=== PATIENT | female | born 1995 | race Caucasian/White ===

== ENCOUNTER 2019-01-02 07:31 | Emergency (ER) | payer OTHER ==
[2019-01-02 08:56] LABS: APPEARANCE,URINE SLIGHTLY-CLOUDY; BILIRUBIN,URINE NEGATIVE (NEGATIVE); COLOR,URINE YELLOW; GLUCOSE, URINE NEGATIVE (NEGATIVE); KETONES,URINE NEGATIVE (NEGATIVE); LEUKOCYTE ESTERASE,URINE SMALL (NEGATIVE); NITRITE,URINE NEGATIVE (NEGATIVE); PROTEIN,URINE NEGATIVE (NEGATIVE); URINE SPECIFIC GRAVITY 1.016; UROBILINOGEN,URINE NEGATIVE mg/dL (<2.0)
[2019-01-02 09:16] LABS: ABSOLUTE BASOPHILS # (AUTO) 0.1 10^3/uL (0.0-0.2); ABSOLUTE EOSINOPHILS # (AUTO) 0.1 10^3/uL (0.0-0.6); ABSOLUTE LYMPHOCYTES (AUTO) 1.7 10^3/uL (0.5-4.7); ABSOLUTE MONOCYTES (AUTO) 0.6 10^3/uL (0.1-1.4); ABSOLUTE NEUT (AUTO) 6.2 10^3/uL (1.7-8.2); BASOPHILS % (AUTO) 0.8 % (0-2); EOSINOPHILS % (AUTO) 1.1 % (0-6); HEMATOCRIT 34.6 % (36.0-47.0); HEMOGLOBIN 12.1 g/dL (12.0-15.5); LYMPHOCYTES % (AUTO) 20.2 % (13-45); MEAN CORPUSCULAR HEMOGLOBIN 29.2 pg (27.0-33.4); MEAN CORPUSCULAR HGB CONC 34.9 g/dL (32.0-36.0); MEAN CORPUSCULAR VOLUME 84 fl (80-97); MONOCYTES % (AUTO) 6.4 % (3-13); PLATELET COUNT 327 10^3/uL (150-450); RED BLOOD COUNT 4.13 10^6/uL (3.72-5.28); RED CELL DISTRIBUTION WIDTH 14.3 % (11.5-14.0); SEGMENTED NEUTROPHILS % (AUTO) 71.5 % (42-78); TOTAL CELLS COUNTED % (AUTO) 100 %; WHITE BLOOD COUNT 8.6 10^3/uL (4.0-10.5)
[2019-01-02] MEDS ORDERED: NORMAL SALINE 1000 ML 1,000 ML IV ONE (09:21)
[2019-01-02] MEDS ORDERED: ONDANSETRON HCL INJ/PF 4 MG/2 ML SDV IV ONE (09:22)
[2019-01-02] MEDS ORDERED: ACETAMINOPHEN 325 MG TABLET PO ONE (09:26)
--- NOTE | 2019-01-02 09:32 | ER Document Report ---
ED GI/ - General Chief Complaint: Abdominal Pain Stated Complaint: BACK PAIN Time Seen by Provider: 01/02/19 08:59 Primary Care Provider: [facility] [Provider Group] - Follow up as needed Notes: Patient is a 23-year-old female who presents to the emergency department with multiple complaints. Patient states that she is about 12 weeks and her last menstrual period is September 23, 2018. She reports that she has had no care as she just obtained insurance and is waiting on a re ferral. Patient states that yesterday she developed light pink vaginal spotting and lower abdominal cramping. Patient reports that the spotting and cramping are intermittent in nature. Patient reports yesterday having 9 episodes of diarrhea. Patient reports that the diarrhea is liquid without blood. She reports she also vomited 5 times within the past 24 hours. Patient states that she has had significant nausea throughout her . Patient reports chills. Patient also complaint of lower back pain. Patient states that Monday she was moving boxes when she tripped and fell backwards. Patient states she did hit the back of the right leg on a board. Patient reports bruising to the posterior aspect of the right lower extremity. Patient states initially the back pain was on the right lower side and is now across the whole back. Patient states that she has attempted to use warm compresses and take warm baths which do help when they are being used. Patient denies head injury or neck injury. TRAVEL OUTSIDE OF THE [place] IN LAST 30 DAYS: No - Related Data Allergies/Adverse Reactions: No Known Allergies Allergy (Unverified 01/02/19 07:32) Past Medical History - General Information source: Patient - Social History Smoking Status: Unknown if Ever Smoked Chew tobacco use (# tins/day): No Frequency of alcohol use: None Drug Abuse: None Lives with: Family Family History: None Patient has suicidal ideation: No Patient has homicidal ideation: No - Past Medical History Cardiac Medical History: Reports: None Pulmonary Medical History: Reports: None EENT Medical History: Reports: None Neurological Medical History: Reports: None Endocrine Medical History: Reports: None Renal/ Medical History: Reports: Hx Kidney Stones. Denies: Hx Peritoneal Dialysis Malignancy Medical History: Reports: None GI Medical History: Reports: None Musculoskeletal Medical History: Reports None Skin Medical History: Reports None Psychiatric Medical History: Reports: None Traumatic Medical History: Reports: None Infectious Medical History: Reports: None Past Surgical History: Reports: Hx Kidney (Renal Surgery) - kidney stones, Hx Orthopedic Surgery - left leg Review of Systems - Review of Systems Constitutional: No symptoms reported EENT: No symptoms reported Cardiovascular: No symptoms reported Respiratory: No symptoms reported Gastrointestinal: See HPI Genitourinary: See HPI Female Genitourinary: See HPI Musculoskeletal: See HPI Skin: No symptoms reported Hematologic/Lymphatic: No symptoms reported Neurological/Psychological: No symptoms reported Physical Exam - Vital signs Vitals: Temp Pulse Resp BP Pulse Ox 97.9 F 109 H 14 129/81 H 96 01/02/19 07:37 01/02/19 07:37 01/02/19 07:37 01/02/19 07:37 01/02/19 07:37 Interpretation: Tachycardic - Notes Notes: GENERAL: Well-appearing, well-nourished and in no acute distress. HEAD: Atraumatic, normocephalic. EYES: Pupils equal round and reactive to light, extraocular movements intact, sclera anicteric, conjunctiva are normal. ENT: Nares patent, oropharynx clear without exudates. Moist mucous membranes. NECK: Normal range of motion, supple without lymphadenopathy or JVD. LUNGS: Breath sounds clear to auscultation bilaterally and equal. No wheezes rales or rhonchi. HEART: Regular rate and rhythm without murmurs, rubs or gallops. ABDOMEN: Soft, nontender, normoactive bowel sounds. No guarding, no rebound. No masses appreciated. BACK: No cervical, thoracic, lumbar midline tenderness. No saddle anesthesia, normal distal neurovascular exam. GENITOURINARY: Deferred. EXTREMITIES: Normal range of motion, no pitting or edema. Large area of ecchymosis noted to the posterior aspect of the right upper leg. There is no edema. Patient has been able to ambulate with a steady gait. NEUROLOGICAL: Cranial nerves II through XII grossly intact. Normal speech, normal gait. PSYCH: Normal mood, normal affect. SKIN: Warm, Dry, normal turgor, no rashes or lesions noted. Course - Re-evaluation Re-evalutation: 01/02/19 09:31 Upon initial examination patient sitting upright in stretcher in no acute distress. Patient denies having vaginal bleeding or discharge at this time. Patient states that the vaginal spotting has been intermittent in nature for the past 24 hours. Will obtain a pelvic examination, ultrasound and additional lab testing. Since patient does report having vomiting and diarrhea over the past 24 hours I will hydrate with IV fluids and give a dose of nausea medicine. I will give Tylenol for pain. Patient is in agreement of this plan and denies questions at this time. 01/02/19 12:05 I did consult with Dr. La during the patient's case and treatment for the bacterial vaginosis. She does recommend the MetroGel for the bacterial vaginosis. Patient to withstand from sexual intercourse until she is fully treated and seen by OB as her cervix could be friable and increased risk for miscarriage. She recommends strict [facility] follow-up. I did discuss this with the patient who verbalizes understanding and denies questions at this time. Patient denies vaginal bleeding since being in the emergency department. 01/02/19 12:21 Patient's gonorrhea and Chlamydia cultures came back negative. - Vital Signs Vital signs: Temp Pulse Resp BP Pulse Ox 97.9 F 84 16 109/67 100 01/02/19 07:37 01/02/19 12:30 01/02/19 12:30 01/02/19 12:30 01/02/19 12:30 - Laboratory Result Diagrams: 01/02/19 08:45 01/02/19 08:45 Laboratory results interpreted by me: 01/02/19 01/02/19 01/02/19 08:30 08:45 08:45 Hct 34.6 L RDW 14.3 H Chloride 108 H Beta HCG, Quant 95332.00 H Ur Leukocyte Esterase SMALL H 01/02/19 10:17 Laboratory 01/02/19 01/02/19 01/02/19 08:30 08:45 08:45 WBC 8.6 RBC 4.13 Hgb 12.1 Hct 34.6 L MCV 84 MCH 29.2 MCHC 34.9 RDW 14.3 H Plt Count 327 Seg Neutrophils % 71.5 Lymphocytes % 20.2 Monocytes % 6.4 Eosinophils % 1.1 Basophils % 0.8 Absolute Neutrophils 6.2 Absolute Lymphocytes 1.7 Absolute Monocytes 0.6 Absolute Eosinophils 0.1 Absolute Basophils 0.1 Neonat Total Bilirubin Not Reportable Neonat Direct Bilirubin Not Reportable Neonat Indirect Bili Not Reportable Urine Color YELLOW Urine Appearance SLIGHTLY-CLOUDY Urine pH 6.0 Ur Specific [place] 1.016 Urine Protein NEGATIVE Urine Glucose (UA) NEGATIVE Urine Ketones NEGATIVE Urine Blood NEGATIVE Urine Nitrite NEGATIVE Urine Bilirubin NEGATIVE Urine Urobilinogen NEGATIVE Ur Leukocyte Esterase SMALL H Urine WBC (Auto) 13 Urine RBC (Auto) 2 Squamous Epi Cells Auto 32 Urine Mucus (Auto) RARE Urine Ascorbic Acid NEGATIVE Blood Type Rhogam Indicated 01/02/19 08:45 WBC RBC Hgb Hct MCV MCH MCHC RDW Plt Count Seg Neutrophils % Lymphocytes % Monocytes % Eosinophils % Basophils % Absolute Neutrophils Absolute Lymphocytes Absolute Monocytes Absolute Eosinophils Absolute Basophils Neonat Total Bilirubin Neonat Direct Bilirubin Neonat Indirect Bili Urine Color Urine Appearance Urine pH Ur Specific [place] Urine Protein Urine Glucose (UA) Urine Ketones Urine Blood Urine Nitrite Urine Bilirubin Urine Urobilinogen Ur Leukocyte Esterase Urine WBC (Auto) Urine RBC (Auto) Squamous Epi Cells Auto Urine Mucus (Auto) Urine Ascorbic Acid Blood Type A POSITIVE Rhogam Indicated RHOGAM NOT INDICATED Patient's blood type is a positive. Patient does not need RhoGam. Patient's urinalysis does show a small amount of leukocytes but does have a good amount of squamous epithelial cells. I will send off a urine culture. Patient CBC is unremarkable without notable anemia, leukocytosis or any acute abnormality. Procedures - Pelvic Exam Pelvic exam Time completed: 10:25 Cultures obtained: Yes Wet prep obtained: Yes Herpes culture obtained: No Foreign body removed: No Witnessed by: Nurse Tech Notes: 01/02/19 10:31 External genitalia was unremarkable without lesions, bleeding or discharge. Patient tolerated the insertion of the speculum well without obvious pain or distress. There was a small amount of white discharge within the vaginal vault. I was able to visualize the cervix which was closed. There was a scant amount of light pink discharge noted on the cervix. Discharge - Discharge Clinical Impression: Vaginal spotting, Bacterial vaginosis in Nausea & vomiting Qualifiers: Vomiting type: unspecified Vomiting Intractability: non-intractable Qualified Code(s): R11.2 - Nausea with vomiting, unspecified Diarrhea Qualifiers: Diarrhea type: unspecified type Qualified Code(s): R19.7 - Diarrhea, unspecified Fall Qualifiers: Encounter type: initial encounter Qualified Code(s): W19.XXXA - Unspecified fall, initial encounter Strain of lumbar paraspinal muscle Qualifiers: Encounter type: initial encounter Qualified Code(s): S39.012A - Strain of muscle, fascia and tendon of lower back, initial encounter Leg injury Qualifiers: Encounter type: initial encounter Laterality: right Qualified Code(s): S89.91XA - Unspecified injury of right lower leg, initial encounter Qualifiers: Weeks of gestation: 12 weeks Qualified Code(s): Z3A.12 - 12 weeks gestation of Condition: Stable Disposition: HOME, SELF-CARE Instructions: Abdominal Pain ([facility]), Diarrhea, Nonspecific ([facility]), Intravenous (IV) Fluids ([facility]), Vomiting ([facility]) Additional Instructions: Today your ultrasound showed a living intrauterine measuring 12 weeks and 3 days with an estimated due date of 07/14/2019. Your pelvic examination did reveal a bacterial infection which is called bacterial vaginosis. Some women are asymptomatic with this but do need to be treated as this can cause issues with the such as miscarriage, cramping, bleeding, pain, etc. You will be prescribed an antibiotic for this. We will use this antibiotic as prescribed. Please do not have sexual intercourse until your treatment is complete and you follow-up with [facility]. Please follow-up with [facility] as soon as possible to establish care. Please return to the emergency department if you develop vaginal bleeding, severe abdominal pain, uncontrollable vomiting, fever or any other concerning signs or symptoms. You are also seen emergency department after a fall. At this time do not think that imaging is necessary. Please continue to use Tylenol as needed for pain and warm compresses as he seemed to be comfortable for you. Please return for reevaluation if symptoms worsen. You were seen for abdominal pain during . Your ultrasound and labs are normal today. The exact cause your pain is uncertain but is likely related to your developing baby. Please follow-up with your [facility] in the next 24-48 hours. Return to the emergency department immediately if you have worsening of your pain, have persistent vomiting, develop a fever of greater than 100.4F, begin to have vaginal bleeding, or any other symptoms that are worrisome to you. Take a vitamin. You are . care is best started as early in as possible. You should take only medications approved by your physician. Acetaminophen can safely be taken for minor pains. As a rule, medication for chronic conditions such as asthma or seizures can safely be continued. You should discuss with the physician every medicine you take. Any regular exercise program can be continued. Talk to your physician, however, before engaging in competitive or demanding sports. Alcohol, smoking, and "street drugs" are dangerous to your baby. Cocaine is especially dangerous. Don't use any illicit drugs! Vaginosis, Bacterial Your exam shows you have bacterial vaginosis. This condition is due to an overgrowth of bacteria in the vagina. Symptoms may include vaginal itching or pain, a smelly discharge, and sometimes burning with urination. Normally this is not transmitted by sexual contact. Vaginosis can be treated with oral or topical antibiotics. Metronidazole (Flagyl) pills are usually effective. Topical vaginal creams include Cleocin and Metro-Gel. You should avoid sexual contact until your symptoms are all better. Call the doctor if you develop pelvic pain, fever, or problems with urination, or if you don't improve as expected. Prescriptions: Metronidazole [Metrogel 0.75% Vaginal Gel] 1 applic VG DAILY #1 tube Forms: Parent Work Note Referrals: [facility] [Provider Group] - Follow up as needed
[2019-01-02 09:36] LABS: ALANINE AMINOTRANSFERASE 13 U/L (9-52); ALBUMIN 3.7 g/dL (3.5-5.0); ALKALINE PHOSPHATASE 54 U/L (38-126); ANION GAP 7 (5-19); ASPARTATE AMINO TRANSFERASE 25 U/L (14-36); BILIRUBIN,DIRECT 0.2 mg/dL (0.0-0.4); BILIRUBIN,TOTAL 0.2 mg/dL (0.2-1.3); BLOOD UREA NITROGEN 8 mg/dL (7-20); CALCIUM 8.8 mg/dL (8.4-10.2); CARBON DIOXIDE 24 mmol/L (22-30); CHLORIDE 108 mmol/L (98-107); GLUCOSE 99 mg/dL (75-110); POTASSIUM 3.8 mmol/L (3.6-5.0); TOTAL PROTEIN 7.3 g/dL (6.3-8.2)
[2019-01-02 10:53] LABS: BACTERIA (WET MOUNT) 3+ BACTERIA SEEN; EPITHELIALS (WET MOUNT) 3+ EPITHELIALS SEEN; T.VAGINALIS (WET MOUNT) NO TRICHOMONAS SEEN; WBCS (WET MOUNT) 4+ WBCS SEEN; YEAST (WET MOUNT) NO YEAST SEEN
--- NOTE | 2019-01-02 11:35 | RADIOLOGY REPORT (SQ) ---
EXAM DESCRIPTION: U/S [id number] TRNABD 1GES W/ODOP COMPLETED DATE/TIME: 01/02/2019 11:18 am REASON FOR STUDY: Vaginal spotting, lower abdominal cramping COMPARISON: None. TECHNIQUE: Transabdominal static and realtime grayscale images acquired of the pelvis. Additional se lected spectral and color Doppler images recorded. All images stored on PACs. bHCG: Not available. CLINICAL DATES: LMP 10/09/2018, KAY 07/16/2019, EGA 12 weeks 1 day LIMITATIONS: None. FINDINGS: FETUS: Single Living intrauterine . ULTRASOUND EGA: 12 weeks 3 days ULTRASOUND KAY: 07/14/2019 EFW: Not applicable less than 20 weeks. CRL: 5.9 FHR: 160 beats per minute. SURVEY: No visualized anomalies. AMNIOTIC FLUID: Adequate amount. PLACENTA: Not yet developed due to early gestation. SUBCHORIONIC BLEED: No. SIZE OF BLEED: Not applicable. UTERUS: No masses. No anomalies. CERVICAL LENGTH: 3.1 Closed. RIGHT ADNEXA: Normal ovary with normal vascular flow. No adnexal free fluid. No adnexal masses. LEFT ADNEXA: Ovary not identified due to poor acoustical window. No adnexal free fluid. No adnexal masses. FREE FLUID: None. OTHER: No other significant finding. IMPRESSION: Living intrauterine with estimated ultrasound gestational age of 12 weeks 3 da ys Trimester of : First trimester - 0 to 13 weeks. TECHNICAL DOCUMENTATION: JOB ID: [id number] [employer]- All Rights Reserved rev Reading location - IP/workstation name: [email or web address]
[2019-01-02 12:14] LABS: CHLAM PCR NOT DETECTED (NOT DETECT)
[2019-01-02 12:36] VITALS: BP 109/67
== END 2019-01-02 12:30 | disposition home or self-care (01) ==
LOC: ER 07:31
DX: O23.591 Infection of other part of genital tract in pregnancy, first trimester (principal); B96.89 Other specified bacterial agents as the cause of diseases classified elsewhere; O26.851 Spotting complicating pregnancy, first trimester; O26.891 Other specified pregnancy related conditions, first trimester; R10.30 Lower abdominal pain, unspecified; R19.7 Diarrhea, unspecified; R68.83 Chills (without fever); O21.9 Vomiting of pregnancy, unspecified; O9A.211 Injury, poisoning and certain other consequences of external causes complicating pregnancy, first trimester; S39.012A Strain of muscle, fascia and tendon of lower back, initial encounter; S70.11XA Contusion of right thigh, initial encounter; S89.91XA Unspecified injury of right lower leg, initial encounter; W19.XXXA Unspecified fall, initial encounter; Y93.89 Activity, other specified; Z3A.12 12 weeks gestation of pregnancy
CPT/HCPCS: 99284; 96361; 96374; 86900; 86901; 36415; 87086; 87210; 84702; 83690; 85025; 80053; 81001; 87491; 87591; 76801; J2405; J7030

== ENCOUNTER 2019-03-14 19:01 | Emergency (ER) | payer OTHER ==
[2019-03-14 19:15] VITALS: BP 135/72
[2019-03-14 20:24] LABS: APPEARANCE,URINE SLIGHTLY-CLOUDY; BILIRUBIN,URINE NEGATIVE (NEGATIVE); CALCIUM OXALATE CRYSTALS,URINE FEW /HPF; COLOR,URINE YELLOW; GLUCOSE, URINE NEGATIVE (NEGATIVE); KETONES,URINE NEGATIVE (NEGATIVE); LEUKOCYTE ESTERASE,URINE MODERATE (NEGATIVE); NITRITE,URINE NEGATIVE (NEGATIVE); PROTEIN,URINE NEGATIVE (NEGATIVE); URINE SPECIFIC GRAVITY 1.013; UROBILINOGEN,URINE NEGATIVE mg/dL (<2.0)
[2019-03-14 21:07] LABS: ABSOLUTE EOSINOPHILS # (AUTO) 0.1 10^3/uL (0.0-0.6); ABSOLUTE LYMPHOCYTES (AUTO) 2.9 10^3/uL (0.5-4.7); ABSOLUTE MONOCYTES (AUTO) 0.8 10^3/uL (0.1-1.4); ABSOLUTE NEUT (AUTO) 7.8 10^3/uL (1.7-8.2); BASOPHILS % (AUTO) 0.1 % (0-2); EOSINOPHILS % (AUTO) 0.7 % (0-6); HEMATOCRIT 35.8 % (36.0-47.0); LYMPHOCYTES % (AUTO) 24.9 % (13-45); MEAN CORPUSCULAR HEMOGLOBIN 28.4 pg (27.0-33.4); MEAN CORPUSCULAR HGB CONC 33.4 g/dL (32.0-36.0); MEAN CORPUSCULAR VOLUME 85 fl (80-97); MONOCYTES % (AUTO) 7.1 % (3-13); PLATELET COUNT 331 10^3/uL (150-450); RED BLOOD COUNT 4.21 10^6/uL (3.72-5.28); SEGMENTED NEUTROPHILS % (AUTO) 67.2 % (42-78); TOTAL CELLS COUNTED % (AUTO) 100 %; WHITE BLOOD COUNT 11.7 10^3/uL (4.0-10.5)
[2019-03-14 21:21] LABS: URINE AMPHETAMINES SCREEN NEGATIVE; URINE BARBITURATES SCREEN NEGATIVE; URINE BENZODIAZEPINES SCREEN NEGATIVE; URINE COCAINE SCREEN NEGATIVE; URINE MARIJUANA (THC) SCREEN NEGATIVE; URINE METHADONE SCREEN NEGATIVE; URINE PHENCYCLIDINE SCREEN NEGATIVE
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
[2019-03-14] MEDS ORDERED: RINGERS SOLUTION,LACTATED 1,000 ML IV PRN (22:54)
[2019-03-14] MEDS ORDERED: CEFTRIAXONE INJ 1000 MG VIAL IV SCH (23:00)
[2019-03-14] MEDS ORDERED: ACETAMINOPHEN 325 MG TABLET PO PRN (23:01)
--- NOTE | 2019-03-15 01:19 | RADIOLOGY REPORT (SQ) ---
EXAM DESCRIPTION: US LIMITED COMPLETED DATE/TME: 03/14/2019 22:57 CLINICAL HISTORY: 23 years, Female, evaluation COMPARISON: 01/02/2019 ultrasound TECHNIQUE: Limited OB ultrasound LIMITATIONS: None. FINDINGS: There is a single, live intrauterine gestation in the cephalic presentation. Cervical length is 3.7 cm. The placenta is anterior in location with a grade 1/2 echotexture. No evidence for previa. heart tones 143 bpm. Current ultrasound age is 22 weeks 5 days. Amniotic fluid index 11.2 cm IMPRESSION: Single live IUP as above. Nonemergent follow-up recommended copyright 2010 [email or web address]- All Rights Reserved
--- NOTE | 2019-03-15 01:22 | RADIOLOGY REPORT (SQ) ---
EXAM DESCRIPTION: US RETROPERITONEUM COMPLETED DATE/TME: 03/14/2019 22:59 CLINICAL HISTORY: 23 years, Female, evaluate kidney stones COMPARISON: None. TECHNIQUE: Retroperitoneal ultrasound LIMITATIONS: None. FINDINGS: The right kidney measures 11 x 6 x 5 cm, the left 13 x 7 x 6 cm. Mild right and mild to moderate left hydronephrosis which could reflect the patient's gravid state. No definitive renal calculus. No renal mass. No perinephric fluid collection. Cortical medullary differentiation preserved. Limited evaluation of urinary bladder unremarkable IMPRESSION: Hydronephrosis bilaterally which could reflect the patient's gravid state copyright 2010 [employer]- All Rights Reserved
[2019-03-15] MEDS ORDERED: PRENATAL VITAMIN W DHA CAPSULE PO SCH (10:00)
[2019-03-15] MEDS ORDERED: PROMETHAZINE HCL INJ 25 MG/1 ML VIAL IV PRN (23:12)
[2019-03-15] MEDS ORDERED: RINGERS SOLUTION,LACTATED 500 ML IV ONE (23:15)
== END 2019-03-14 20:38 | disposition admitted as inpatient to this hospital (09) ==
LOC: ER 19:01 → EH 20:27 → ER 20:38 → UNDOADMIN 22:38 → LR 22:38
DX: N12 Tubulo-interstitial nephritis, not specified as acute or chronic (principal)
CPT/HCPCS: 36415; 76770; 76815; 80307; 81001; 81025; 85025; 87086

== ENCOUNTER 2019-03-14 20:41 | Inpatient (IN) | payer OTHER ==
[2019-03-14] MEDS ORDERED: CEFTRIAXONE INJ 1000 MG VIAL ONE (23:51)
[2019-03-14] MEDS ORDERED: ACETAMINOPHEN 325 MG TABLET ONE (23:51)
[2019-03-15] MEDS: ACETAMINOPHEN 325 MG TABLET PO PRN ×4 (04:09→20:54)
[2019-03-15] MEDS: RINGERS SOLUTION,LACTATED 1,000 ML IV PRN ×2 (06:12→15:23)
--- NOTE | 2019-03-15 09:08 | PDOC PROGRESS REPORT ---
Subjective Progress Note for:: 03/15/19 Subjective:: pt feels better but still has left flank pain Reason For Visit: pylo Physical Exam - Physical Exam Vital Signs: Temp Pulse Resp BP Pulse Ox 97.6 F 90 18 118/64 100 03/15/19 07:47 03/15/19 07:47 03/15/19 07:47 03/15/19 07:47 03/15/19 07:47 Intake & Output 03/14/19 03/15/19 03/16/19 06:59 06:59 06:59 Output Total 350 300 Balance -350 -300 Weight 115.1 kg General appearance: PRESENT: no acute distress GI/Abdominal exam: PRESENT: soft Result Laboratory Results: 03/14/19 22:56 Blood Type A POSITIVE Antibody Screen NEGATIVE Assessment & Plan - Diagnosis (1) Pyelonephritis affecting Qualifiers: Trimester: second trimester Qualified Code(s): O23.02 - Infections of kidney in , second trimester Is this a current diagnosis for this admission?: Yes - Plan Summary Plan Summary: continue IV antibiotics US
[2019-03-15] MEDS: PRENATAL VITAMIN W DHA CAPSULE PO SCH (10:39)
[2019-03-15] MEDS ORDERED: CEFTRIAXONE 1 GM/D5W RTU 1 GM/50 ML RTUPB IV ONE (20:51)
[2019-03-15] MEDS ORDERED: CEFTRIAXONE 1 GM/D5W RTU 1 GM/50 ML RTUPB IV SCH (22:00)
[2019-03-16] MEDS ORDERED: PROMETHAZINE HCL INJ 25 MG/1 ML VIAL ONE (00:03)
[2019-03-16] MEDS ORDERED: PROMETHAZINE HCL INJ 25 MG/1 ML VIAL IV PRN (00:08)
[2019-03-16] MEDS ORDERED: RINGERS SOLUTION,LACTATED 500 ML IV ONE (00:15)
[2019-03-16] MEDS: RINGERS SOLUTION,LACTATED 1,000 ML IV PRN (04:45)
[2019-03-16] MEDS: ACETAMINOPHEN 325 MG TABLET PO PRN (04:47)
--- NOTE | 2019-03-16 08:47 | PDOC DISCHARGE SUMMARY ---
Impression - Admit/DC Date/PCP Admission Date/Primary Care Provider: 03/14/19 23:24 23-year-old G3, P2 [facility]. Patient was seen at [facility], given antibiotics and sent home. She then presented to this hospital the next day. Patient was evaluated for possible currently underwent a renal ultrasound which showed bilateral hydronephrosis. Patient reports good movement and denies cramping. Discharge Date: 03/16/19 - Discharge Diagnosis (1) Hydronephrosis Is this a current diagnosis for this admission?: Yes - Assessment Summary: Patient received Rocephin twice daily for couple of days, which was reduced to Rocephin once daily. She will only use Tylenol for her back discomfort. Patie nt reports good movement. Patient remained afebrile. Patient is ambulating voiding without difficulty. She is tolerating a regular diet. - Additional Information Resuscitation Status: Full Code Discharge Diet: As Tolerated, Regular Discharge Activity: Activity As Tolerated Referrals: [facility] [Provider Group] Home Medications: Prenat 115/Iron Fum/Folic/Dss [ 19 Tablet] 115 mg PO DAILY 03/14/19 History of Present Illiness History of Present Illness: JOHNNIE PADGETT is a 23 year old and intrauterine in approximately 20 weeks. Patient presented to L&D complaining of back pain. Patient was evaluated for kidney stones, which were ruled out via renal ultrasound. Ultrasound showed bilateral hydronephrosis. Hospital Course Hospital Course: Hospital course was essentially uneventful. She remained afebrile during her entire stay. She received Rocephin twice daily at first and then reduce to once daily. Her pain was managed with Tylenol. She is ambulating voiding without difficulty. She is tolerating a regular diet. Physical Exam - Physical Exam Vital Signs: Temp Pulse Resp BP Pulse Ox 98.1 F 79 16 114/58 L 100 03/16/19 07:51 03/16/19 07:51 03/16/19 07:51 03/16/19 07:51 03/16/19 07:51 Intake & Output 03/15/19 03/16/19 03/17/19 06:59 06:59 06:59 Intake Total 2290 Output Total 350 3750 Balance -350 -1460 Weight 115.1 kg 114.7 kg General appearance: PRESENT: no acute distress Respiratory exam: PRESENT: clear to auscultation ursula Cardiovascular exam: PRESENT: RRR GI/Abdominal exam: PRESENT: normal bowel sounds, soft - Mild flank pain Extremities exam: ABSENT: calf tenderness, clubbing, full ROM, joint swelling, pedal edema, tenderness, +1 edema, +2 edema, other Results Laboratory Results: RPR NONREACTIVE (NONREACTIVE) 03/14/19 22:56 Blood Type A POSITIVE 03/14/19 22:56 Antibody Screen NEGATIVE 03/14/19 22:56 Plan Plan of Treatment: 1. Discharge home 2. Follow-up with [facility] as scheduled or sooner if needed 3. Stay well-hydrated 4. May continue to use Tylenol for back discomfort Time Spent: Less than 30 Minutes Stroke Is this a Stroke Patient?: No Acute Heart Failure - Is this a Heart Failure Patient?: No
[2019-03-16] MEDS: PRENATAL VITAMIN W DHA CAPSULE PO SCH (10:39)
[2019-03-16 11:19] VITALS: BP 122/68
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
== END 2019-03-16 14:00 | disposition home or self-care (01) | DRG 832 ==
LOC: LC 20:41 → LR 23:24 → 2S 03-15 00:32
PROVIDERS: ADMIT Obstetrics & Gynecology; ATTEND Obstetrics & Gynecology
DX: O26.832 Pregnancy related renal disease, second trimester (principal); N13.30 Unspecified hydronephrosis; Z3A.20 20 weeks gestation of pregnancy; Z87.891 Personal history of nicotine dependence; O99.342 Other mental disorders complicating pregnancy, second trimester; F32.9 Major depressive disorder, single episode, unspecified; F43.10 Post-traumatic stress disorder, unspecified; Z62.810 Personal history of physical and sexual abuse in childhood; Z91.410 Personal history of adult physical and sexual abuse; Z86.19 Personal history of other infectious and parasitic diseases
CPT/HCPCS: 36415; 86592; 86850; 86900; 86901; J0696; J2550; J3490; J7120

== ENCOUNTER 2019-03-21 18:58 | Emergency (ER) | payer OTHER ==
[2019-03-21] MEDS ORDERED: ONDANSETRON 4 MG TAB.RAPDIS PO ONE (19:24)
--- NOTE | 2019-03-21 19:28 | ER Document Report ---
ED Medical Screen (RME) - General Chief Complaint: Flank Pain Stated Complaint: LEFT BACK PAIN Time Seen by Provider: 03/21/19 19:22 Mode of Arrival: Ambulatory Information source: Patient Notes: Patient presents emergency department with complaints of pain with void left- sided flank pain nausea vomiting with history of kidney stones.. Patient is approximately 23 weeks . She has been evaluated and treated with antibiotics for this twice in the past week. Reports last time she vomited was at 650 tonight. Patient is drinking a soda from [employer]. Denies abdominal pain. Denies vaginal bleeding. I have greeted and performed a rapid initial assessment of this patient. A comprehensive ED assessment and evaluation of the patient, analysis of test results and completion of the medical decision making process will be conducted by additional ED providers. Dictation of this chart was performed using voice recognition software; therefore, there may be some unintended grammatical errors. TRAVEL OUTSIDE OF THE [place] IN LAST 30 DAYS: No - Related Data Allergies/Adverse Reactions: No Known Allergies Allergy (Unverified 01/02/19 07:32) Past Medical History - Social History Chew tobacco use (# tins/day): No Drug Abuse: None Renal/ Medical History: Reports: Hx Kidney Stones. Denies: Hx Peritoneal Dialysis Past Surgical History: Reports: Hx Kidney (Renal Surgery) - kidney stones, Hx Orthopedic Surgery - left leg Physical Exam - Vital signs Vitals: Temp Pulse Resp BP Pulse Ox 97.9 F 108 H 18 145/58 H 98 03/21/19 19:17 03/21/19 19:17 03/21/19 19:17 03/21/19 19:17 03/21/19 19:17 Course - Vital Signs Vital signs: Temp Pulse Resp BP Pulse Ox 97.9 F 108 H 18 145/58 H 98 03/21/19 19:17 03/21/19 19:17 03/21/19 19:17 03/21/19 19:17 03/21/19 19:17
[2019-03-21 20:21] LABS: ABSOLUTE EOSINOPHILS # (AUTO) 0.1 10^3/uL (0.0-0.6); ABSOLUTE LYMPHOCYTES (AUTO) 1.3 10^3/uL (0.5-4.7); ABSOLUTE MONOCYTES (AUTO) 0.7 10^3/uL (0.1-1.4); ABSOLUTE NEUT (AUTO) 8.5 10^3/uL (1.7-8.2); BASOPHILS % (AUTO) 0.4 % (0-2); HEMATOCRIT 35.3 % (36.0-47.0); LYMPHOCYTES % (AUTO) 12.4 % (13-45); MEAN CORPUSCULAR HEMOGLOBIN 28.7 pg (27.0-33.4); MEAN CORPUSCULAR VOLUME 84 fl (80-97); MONOCYTES % (AUTO) 6.8 % (3-13); PLATELET COUNT 303 10^3/uL (150-450); RED BLOOD COUNT 4.19 10^6/uL (3.72-5.28); RED CELL DISTRIBUTION WIDTH 14.2 % (11.5-14.0); SEGMENTED NEUTROPHILS % (AUTO) 79.4 % (42-78); TOTAL CELLS COUNTED % (AUTO) 100 %; WHITE BLOOD COUNT 10.8 10^3/uL (4.0-10.5)
[2019-03-21 20:30] LABS: APPEARANCE,URINE CLOUDY; BILIRUBIN,URINE NEGATIVE (NEGATIVE); COLOR,URINE YELLOW; GLUCOSE, URINE NEGATIVE (NEGATIVE); KETONES,URINE NEGATIVE (NEGATIVE); LEUKOCYTE ESTERASE,URINE TRACE (NEGATIVE); NITRITE,URINE NEGATIVE (NEGATIVE); PROTEIN,URINE NEGATIVE (NEGATIVE); URINE SPECIFIC GRAVITY 1.019; UROBILINOGEN,URINE NEGATIVE mg/dL (<2.0)
[2019-03-21 20:36] LABS: ALBUMIN 3.4 g/dL (3.5-5.0); ALKALINE PHOSPHATASE 64 U/L (38-126); ANION GAP 7 (5-19); ASPARTATE AMINO TRANSFERASE 13 U/L (14-36); BILIRUBIN,DIRECT 0.1 mg/dL (0.0-0.4); BILIRUBIN,TOTAL 0.2 mg/dL (0.2-1.3); BLOOD UREA NITROGEN 7 mg/dL (7-20); CALCIUM 8.8 mg/dL (8.4-10.2); CARBON DIOXIDE 25 mmol/L (22-30); CHLORIDE 104 mmol/L (98-107); GLUCOSE 97 mg/dL (75-110); POTASSIUM 4.6 mmol/L (3.6-5.0); TOTAL PROTEIN 6.9 g/dL (6.3-8.2)
--- NOTE | 2019-03-21 20:49 | RADIOLOGY REPORT (SQ) ---
US RETROPERITONEUM LIMITED EXAM DATE: 03/21/2019 7:26 PM CDT HISTORY: Flank pain. COMPARISON: 03/14/2019 TECHNIQUE: Grayscale and color Doppler ultrasound images of the kidneys were obtained. FINDINGS: The right kidney measures 11.8 cm in length, which is normal size. The cortex has normal thickness and echogenicity. There is no right-sided kidney stone, mass or hydronephrosis. The left kidney measures 12.6 cm in length, which is normal size. The cortex has normal thickness and echogenicity. There is mild right hydronephrosis. The urinary bladder is unremarkable. IMPRESSION: 1. No evidence of urinary stones. 2. Mild right hydronephrosis.
--- NOTE | 2019-03-21 22:52 | ER Document Report ---
ED General - General Stated Complaint: LEFT BACK PAIN Time Seen by Provider: 03/21/19 19:22 Mode of Arrival: Ambulatory TRAVEL OUTSIDE OF THE [place] IN LAST 30 DAYS: No - HPI Notes: 23-year-old female, 23 to 24 weeks , presents with back pain. Patient has some with a complicated course and is much as was evaluated over the last 2 weeks and treated for possible pyelonephritis. She has a prior history of stones. She describes left lower lateral lumbar pain, low near L4 and L5. No trauma, worse with motion, worse with bending over. No direct injury. She does have some continued dysuria. She states that she was treated here in the emergency department some days back but just received a single injection of Rocephin no outpatient antibiotics. Moderate intensity, nonradiating, gradual onset. No bowel or bladder dysfunction. There is no history of malignancy, no history of bowel or bladder dysfunction. No fever or constitutional symptoms. No history of IV drug abuse. - Related Data Allergies/Adverse Reactions: No Known Allergies Allergy (Unverified 01/02/19 07:32) Past Medical History - General Information source: Patient - Social History Smoking Status: Never Smoker Chew tobacco use (# tins/day): No Drug Abuse: None Family History: None Patient has suicidal ideation: No Patient has homicidal ideation: No - Medical History Notes: Currently Renal/ Medical History: Reports: Hx Kidney Stones. Denies: Hx Peritoneal Dialysis Past Surgical History: Reports: Hx Kidney (Renal Surgery) - kidney stones, Hx Orthopedic Surgery - left leg Review of Systems - Review of Systems Notes: Review of systems as in the history of present illness, otherwise negative x 10 systems. Physical Exam - Vital signs Vitals: Temp Pulse Resp BP Pulse Ox 97.9 F 108 H 18 145/58 H 98 03/21/19 19:17 03/21/19 19:17 03/21/19 19:17 03/21/19 19:17 03/21/19 19:17 - Notes Notes: General: Well developed . HEENT: Normocephalic, atraumatic. Pupils equal round reactive to light. No JVD. Chest: No trauma. Respiratory: Good air exchange, normal excursion. Cardiac: Regular rhythm. No murmurs or gallops. Abdomen: Soft, benign. Nondistended. Nontender. Back: No asymmetry or gross abnormality. Discrete and completely reproducible tenderness to the left paraspinal musculature near L3 and L4. No skin changes. Motor: Grossly normal power and tone. Neurologic: Alert, nonfocal. Cranial nerves II-12 are intact. Sensation intact. Vascular: Well perfused. Normal peripheral pulses. Skin: No petechiae or purpura. Course - Re-evaluation Re-evalutation: 03/21/19 22:52 Patient was evaluated by the [facility] provider prior to my evaluation. Studies / interventions have been ordered by this provider and may still be pending. Appearing female the after mentioned symptoms, discrete reproducible back pain that strongly suggest a muscular skeletal component. I doubt pyelonephritis, doubt renal colic or vascular emergency. Labs were obtained by the [facility] provider, CBC and chemistries unremarkable, ultrasound shows mild right sided but not left-sided hydronephrosis, no obvious stone. Patient is doing well throughout her ED course. Given the uncertainty over her possible pyelonephritis and treatment in the presence of trace bacteria, I will err on the side of caution and treat with Omnicef and a prescription for the same. However, she can have culture follow-up in 48 hours and be discontinued if culture is negative. - Vital Signs Vital signs: Temp Pulse Resp BP Pulse Ox 97.9 F 108 H 18 145/58 H 98 03/21/19 19:17 03/21/19 19:17 03/21/19 19:17 03/21/19 19:17 03/21/19 19:17 - Laboratory Result Diagrams: 03/21/19 20:06 03/21/19 20:06 Laboratory results interpreted by me: 03/21/19 03/21/19 03/21/19 20:06 20:06 20:06 WBC 10.8 H Hct 35.3 L RDW 14.2 H Lymph % (Auto) 12.4 L Absolute Neuts (auto) 8.5 H Seg Neutrophils % 79.4 H Sodium 136.3 L AST 13 L Albumin 3.4 L Ur Leukocyte Esterase TRACE H Urine Ascorbic Acid 20 H Urine HCG, Qual POSITIVE H Discharge - Discharge Clinical Impression: Back pain Qualifiers: Back pain location: low back pain Chronicity: acute Back pain laterality: left Sciatica presence: without sciatica Qualified Code(s): M54.5 - Low back pain Condition: Stable Disposition: HOME, SELF-CARE Instructions: Low Back Pain ([facility]) Additional Instructions: Your urine is equivocal, given your history we will treat you, however, your [facility] doctor will need to check your culture in 48 hours to determine if continued antibiotics are necessary. Prescriptions: Cefdinir [Omnicef 300 mg Capsule] 1 cap PO BID #14 capsule
[2019-03-21] MEDS ORDERED: CEFUROXIME 500 MG TABLET PO ONE (22:58)
[2019-03-21 23:14] VITALS: BP 138/78
[2019-03-21] MEDS ORDERED: CEFUROXIME 500 MG TABLET ONE (23:15)
== END 2019-03-21 23:25 | disposition home or self-care (01) ==
LOC: ER 18:58
DX: M54.5 Low back pain (principal); R30.0 Dysuria; M54.9 Dorsalgia, unspecified; Z87.442 Personal history of urinary calculi
CPT/HCPCS: 99284; 36415; 87086; 85025; 81025; 80053; 81001; 76775; J3490; S0119